=== PATIENT | female | born 1995 | race Caucasian/White ===

== ENCOUNTER → 2017-03-27 | Outpatient (CLI) | payer BC ==
[2017-03-27 17:38] LABS: Amorphous Sediment,Urine Occasional /hpf; Appearance,Urine Clear (Clear); Bacteria,Urine Occasional /hpf; Bilirubin,Urine 1+ (Negative); Glucose,Urine (UA) Negative (Negative); Ketones,Urine Negative (Negative); Leukocyte Esterase,Urine Small (Negative); Mucus,Urine Rare /hpf; Nitrite,Urine Positive (Negative); PH, Urine 5.5 (5.0-8.0); Particle Count 4467; Protein,Urine Trace (Negative); RBC,Urine 3 /hpf (0-5); Squamous Epithelial Cell,Urine 9 /hpf (0-4); UA Billing (MACRO vs. MICRO) MICRO; WBC,Urine 31 /hpf (0-5)
== END | disposition home or self-care (01) ==
LOC: LABWHC1 16:51
PROVIDERS: ATTEND Obstetrics & Gynecology
DX: R39.9 Unspecified symptoms and signs involving the genitourinary system (principal)
CPT/HCPCS: 81001; 87086

== ENCOUNTER → 2018-08-06 | Outpatient (CLI) | payer MEDICAID | END | disposition home or self-care (01) | LOC: LABMAIN 21:36 | PROVIDERS: ATTEND Dermatology | DX: L30.9 Dermatitis, unspecified (principal) | CPT/HCPCS: 36415; 82955 ==

== ENCOUNTER → 2018-08-21 | Outpatient (CLI) | payer MEDICAID | LOC: LABMAIN 04:31 | PROVIDERS: ATTEND Dermatology MOHS-Micrographic Surgery | DX: Z53.9 Procedure and treatment not carried out, unspecified reason (principal) ==

== ENCOUNTER → 2018-08-21 | Outpatient (CLI) | payer MEDICAID ==
[2018-08-21 05:34] LABS: Basophils # (A) 0.1 k/uL (0-0.2); Basophils % (A) 1 %; Eosinophils # (A) 0.3 k/uL (0-0.7); Eosinophils % (A) 3 %; HCT 43.7 % (34.0-46.0); HGB 14.3 gm/dL (11.4-16.0); Lymphocytes # (A) 4.4 k/uL (1.0-4.8); Lymphocytes % (A) 47 %; MCH 29.1 pg (25.0-35.0); MCHC 32.7 g/dL (31.0-37.0); MCV 88.9 fL (80.0-100.0); Mean Platelet Volume 7.8; Monocytes # (A) 0.4 k/uL (0-1.0); Monocytes % (A) 5 %; Neutrophils # (A) 3.9 k/uL (1.3-7.7); Neutrophils % (A) 42 %; Platelet Count 179 k/uL (150-450); RBC 4.91 m/uL (3.80-5.40); RDW 13.6 % (11.5-15.5); WBC 9.2 k/uL (3.8-10.6)
[2018-08-21 05:47] LABS: ALT 20 U/L (9-52); AST 28 U/L (14-36); Albumin 4.1 g/dL (3.5-5.0); Alkaline Phosphatase 52 U/L (38-126); Anion Gap 11 mmol/L; Blood Urea Nitrogen 13 mg/dL (7-17); C Reactive Protein <5.0 mg/L (<10.0); Calcium 9.4 mg/dL (8.4-10.2); Carbon Dioxide 25 mmol/L (22-30); Chloride 104 mmol/L (98-107); Creatine Kinase 39 U/L (30-135); Glucose 86 mg/dL (74-99); Potassium 3.7 mmol/L (3.5-5.1); Sodium 140 mmol/L (137-145); Total Bilirubin 0.4 mg/dL (0.2-1.3); Total Protein 6.9 g/dL (6.3-8.2); Uric Acid 3.9 mg/dL (3.7-7.4)
--- NOTE | 2018-08-21 05:47 | XR ---
EXAMINATION TYPE: XR chest 2V DATE OF EXAM: 08/21/2018 COMPARISON: NONE HISTORY: Rash. TECHNIQUE: Frontal and lateral views of the chest are obtained. FINDINGS: Heart and mediastinum are normal. Lungs are clear. Diaphragm is normal. Bony thorax appear s normal. Pulmonary vascularity is normal. IMPRESSION: Normal chest.
[2018-08-21 06:01] LABS: T4, Free (Free Thyroxine) 1.04 ng/dL (0.78-2.19)
[2018-08-21 07:46] LABS: Erythrocyte Sedimentation Rate 1 mm/hr (0-20)
[2018-08-21 10:58] LABS: Protein, Total 6.8 g/dL (6.2-8.2)
[2018-08-21 11:07] LABS: Vitamin D 25 Hydroxy 25.7 ng/mL (30.0-100.0)
[2018-08-21 11:34] LABS: Immunoglobulin M 65.9 mg/dL (40.0-280.0)
[2018-08-21 11:42] LABS: Rheumatoid Factor 7 IU/mL (0-15)
[2018-08-21 11:59] LABS: Anti-DNA, DS unit <1.0 IU/mL; Centromere Antibody Interp POSITIVE (NEGATIVE); Cyclic Citrullinated Pep IgG NEGATIVE (NEGATIVE); DNA Double-Stranded NEGATIVE (NEGATIVE); Scleroderma SC-70 Ab <0.2 AI
[2018-08-21 12:05] LABS: Cardiolipin Ab IgG Interp NEGATIVE (NEGATIVE); Cardiolipin Ab IgM Interp NEGATIVE (NEGATIVE); Cardiolipin IgA Antibody <0.5 U/mL; Cardiolipin IgM Antibody 0.2 U/mL; Hepatitis C IgG Antibody Non-Reactive (Non-Reactive)
[2018-08-22 07:24] LABS: Aldolase 4.4 U/L (1.2-7.6)
[2018-08-22 07:26] LABS: Angiotensin-1 Converting Enz. 18 U/L (8-52)
[2018-08-24 11:00] LABS: Albumin 4.25 g/dL (3.80-4.90); Gamma Globulin 0.65 g/dL (0.70-1.50)
[2018-08-24 13:37] LABS: APTT 30 Sec(s) (<43); Dilute Russell Viper Venom 35 Sec(s) (<44)
[2018-08-24 14:26] LABS: C-ANCA <1:20 Titer (<1:20); P-ANCA <1:20 Titer (<1:20)
== END | disposition home or self-care (01) ==
LOC: LABMAIN 04:37
PROVIDERS: ATTEND Physician Assistant Medical
DX: R21 Rash and other nonspecific skin eruption (principal)
CPT/HCPCS: 36415; 71046; 80053; 82085; 82164; 82306; 82550; 82784; 83883; 84165; 84439; 84443; 84550; 85025; 85613; 85652; 85730; 86038; 86039; 86140; 86147; 86160; 86162; 86200; 86225; 86235; 86255; 86334; 86431; 86803; 87340

== ENCOUNTER 2020-09-29 13:18 | Emergency (ER) | payer MEDICAID, OTHER ==
--- NOTE | 2020-09-29 13:36 | ED ---
General Adult HPI - General Stated complaint: [facility]-Needle Stick Time Seen by Provider: 09/29/20 13:26 Source: patient, RN notes reviewed Mode of arrival: ambulatory Limitations: no limitations - History of Present Illness Initial comments: 25-year-old female presents for needlestick left thumb. 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 She is up-to-date on tetanus there is no known communicable diseases. Patient offers not complaints. - Related Data Home Medications Medication Instructions Recorded Confirmed Escitalopram [Lexapro] 10 mg PO HS 12/29/15 11/16/16 Levonorgestrel-Ethin Estradiol 1 tab PO HS 12/29/15 11/16/16 [Lutera-28 Tablet] Previous Rx's Medication Instructions Recorded Ondansetron Odt [Zofran ODT] 4 mg PO Q8HR PRN #10 tab 11/16/16 Allergies Allergy/AdvReac Type Severity Reaction Status Date / Time Sulfa (Sulfonamide Allergy Unknown Rash/Hives Verified 11/16/16 03:56 Antibiotics) Review of Systems ROS Statement: Those systems with pertinent positive or pertinent negative responses have been documented in the HPI. ROS Other: All systems not noted in ROS Statement are negative. Past Medical History Additional Past Medical History / Comment(s): BLOOD WITH BOWEL MOVEMENTS., STATES BOWEL MOVEMENTS ONCE A WEEK. History of Any Multi-Drug Resistant Organisms: None Reported Past Surgical History: No Surgical Hx Reported Additional Past Surgical History / Comment(s): WISDOM TEETH REMOVED Additional Past Anesthesia/Blood Transfusion Reaction / Comment(s): NO SURGICAL HISTORY. PT STATES GRANDMOTHER COULDNT WAKE UP BUT COULD HEAR EVERYTHING. Past Psychological History: Anxiety Past Alcohol Use History: Occasional Past Drug Use History: None Reported - Past Family History Mother Family Medical History: No Reported History General Exam General appearance: alert, in no apparent distress Head exam: Present: atraumatic, normocephalic, normal inspection Respiratory exam: Present: normal lung sounds bilaterally. Absent: respiratory distress, wheezes, rales, rhonchi, stridor Cardiovascular Exam: Present: regular rate, normal rhythm, normal heart sounds. Absent: systolic murmur, diastolic murmur, rubs, gallop, clicks Extremities exam: Present: other (Puncture wound left thumb) Medical Decision Making - Medical Decision Making Rapid HIV was drawn, no prophylaxis HIV to be at this time. Patient will have repeat testing. Disposition Clinical Impression: Needlestick injury accident Disposition: HOME SELF-CARE Condition: Stable Instructions (If sedation given, give patient instructions): Needle Stick Injuries (ED) Additional Instructions: Please return to the Emergency Department if symptoms worsen or any other concerns. Is patient prescribed a controlled substance at d/c from ED?: No Referrals: Rashawn Jennings III, MD [Primary Care Provider] - 1-2 days Time of Disposition: 13:36
== END 2020-09-29 13:30 | disposition home or self-care (01) ==
LOC: EC 13:18
DX: S61.032A Puncture wound without foreign body of left thumb without damage to nail, initial encounter (principal); F41.9 Anxiety disorder, unspecified; Z79.3 Long term (current) use of hormonal contraceptives; Z79.899 Other long term (current) drug therapy; Z88.2 Allergy status to sulfonamides; W46.1XXA Contact with contaminated hypodermic needle, initial encounter
CPT/HCPCS: 99282